=== PATIENT | female | born 1930 | race Caucasian/White ===

== ENCOUNTER 2018-07-31 11:42 | Inpatient (IN) ==
--- NOTE | 2018-07-31 12:55 | Progress Note ---
Internal Medicine - PN: Subj *Date: 07/31/18 *Time: 12:52 Interval history: See H&P from A. See also ER record of 4 PM. Admitted with altered mental status, likely CVA. Current on adult immunizations. No out of country travel recently. Exam Vital signs and Labs for Last 24 Hours: Temp Pulse Resp BP Pulse Ox 98.4 F 64 18 193/87 H 97 07/31/18 11:46 07/31/18 11:46 07/31/18 11:46 07/31/18 11:46 07/31/18 11:46 I & O for Last 24 hours: Intake & Output 07/29/18 07/30/18 07/31/18 08/01/18 11:59 11:59 11:59 11:59 Weight 168 lb 2 oz Assessment and Plan (1) Altered mental state Current visit: Yes Status: Acute Category: Medical Code(s): R41.82 - Altered mental status, unspecified (2) Hypothyroidism (acquired) Current visit: Yes Status: Acute Category: Medical Code(s): E03.9 - Hypothyroidism, unspecified (3) Sinusitis Current visit: Yes Status: Acute Category: Medical Code(s): J32.9 - Chronic sinusitis, unspecified - Assessment and plan all Dx Assessment and Plan for all problems:: see orders.
[2018-07-31 13:04] LABS: Albumin Level 3.8 gm/dL (3.4-5.0); Anion Gap 15.6 mEq/L (5-15); Bilirubin,Total 0.7 mg/dL (0.2-1.0); Calcium 9.7 mg/dL (8.5-10.1); Globulin 3.8 gm/dl (1.3-3.2); Potassium 3.6 mmoL/L (3.5-5.1); Total Protein,Serum 7.6 gm/dL (6.4-8.2)
[2018-07-31 13:34] LABS: Basophils % 0.3 % (0.1-2.0); Eosinophils % 0.6 % (0.1-12.0); Hematocrit 37.9 % (37.0-47.0); Hemoglobin 12.4 g/dL (12.2-16.2); Lymphocytes # 1.6 K/mm3 (0.7-4.5); Lymphocytes % 20.5 % (10-50); Mean Corpuscular HGB Conc 32.7 g/dL (31.8-35.4); Mean Corpuscular Hemoglobin 28.5 pg (27.0-31.2); Mean Corpuscular Volume 87.3 fl (81-99); Mean Platelet Volume 7.8 fl (7.4-10.4); Monocytes # 0.3 K/mm3 (0.1-1.0); Monocytes % 4.2 % (1.7-9.3); Neutrophils # 5.6 K/mm3 (1.8-7.8); Neutrophils % 74.5 % (37.0-80.0); Platelet Count 246 K/mm3 (142-424); Red Blood Count 4.33 M/mm3 (4.20-5.40); Red Cell Distribution Width 14.9 % (11.5-17.5); White Blood Count 7.6 K/mm3 (4.8-10.8)
--- NOTE | 2018-07-31 14:16 | Pharmacy Consult Notes ---
[facility] Pharmacy VTE Monitoring - Patient Demographics Admission date: 07/31/18 Report Date: 07/31/18 Time: 14:16 Allergies/Adverse Reactions: Patient Allergies No Known Allergies Allergy (Verified 07/30/18 17:11) Height: 1.57 m Weight: 76.26 kg Patient Problems: Current Active Problems Altered mental state (Acute) Hypothyroidism (acquired) (Acute) Sinusitis (Acute) - VTE Risk Labs: VTE Related Lab Results Hgb 12.4 g/dL (12.2-16.2) 07/31/18 12:20 Hct 37.9 % (37.0-47.0) 07/31/18 12:20 Plt Count 246 K/mm3 (142-424) 07/31/18 12:20 BUN 15 mg/dL (7-18) D 07/31/18 12:20 Creatinine 0.88 mg/dL (0.55-1.02) 07/31/18 12:20 Estimated Creat Clear 47 mL/min (50-200) 07/31/18 12:20 VTE Score: 2 - Prophylaxis VTE Prophylaxis Ordered?: Yes Types of VTE Prophylaxis: TEDS Knee High Location of Applied Device: Bilateral Lower Extremeties - VTE Diagnosis Confirmed Treatment or plan recommended: Continue Current Treatment
[2018-07-31 20:51] LABS: Microscopic, Urine URINE MICROSCOPIC (MICROSCOPIC)
[2018-07-31 20:57] LABS: Appearance,Urine CLEAR (Clear); Bilirubin,Urine Negative (Negative); Blood, Urine TRACE-L (Negative); Color,Urine YELLOW (Yellow); Glucose,Urine (UA) Negative (Negative); Ketones,Urine Negative (Negative); Leukocyte Esterase,Urine Negative (Negative); Protein,Urine Negative (Negative); Specific Gravity, Urine <= 1.005 (1.005-1.030); Urobilinogen,Urine 0.2 EU/dl (0.2)
[2018-07-31 21:43] LABS: Bacteria,Urine Trace /lpf; Squamous Epithelial Cell,Urine Occasional #/hpf (0-5); WBC,Urine Occasional #/hpf (0-3)
--- NOTE | 2018-08-01 08:45 | Progress Note ---
<Stacey Saunders - Last Filed: 08/01/18 08:41> Internal Medicine - PN: Subj *Date: 08/01/18 *Time: 08:41 Interval history: Ms. Kamaar is an 88-year-old female who presented to the office of [facility] yesterday and saw Dr. wilkins. She was having slurred speech and memory loss. Her blood pressure was elevated and she seemed very confused and was not making sense when she was talking. She had imaging done the previous day in the ER showing severe sinus disease but nothing acute. She had a slight right facial droop but no other obvious focal deficits in the office. She was babbling and confused. She was admitted and was thought to have had a CVA with altered mental status. This a.m. she is still slightly confused and her speech is still slurred. She continues to have no focal deficits although she does have a hard time following commands. Exam Vital signs and Labs for Last 24 Hours: Temp Pulse Resp BP Pulse Ox 98.0 F 61 18 188/71 H 94 L 08/01/18 04:00 08/01/18 04:00 08/01/18 04:00 08/01/18 04:00 08/01/18 04:00 Laboratory Results - last 24 hr 07/31/18 12:20: Sodium 136, Potassium 3.6, Chloride 101, Carbon Dioxide 23, Anion Gap 15.6 H, BUN 15 D, Creatinine 0.88, Estimated Creat Clear 47, Estimated GFR 61, Est GFR ( Amer) 73, Glucose 106, Calcium 9.7, Total Bilirubin 0.7, AST 25 D, ALT 25, Alkaline Phosphatase 79, Total Protein 7.6, Albumin 3.8, Globulin 3.8 H, Albumin/Globulin Ratio 1.0 L 07/31/18 12:20: WBC 7.6, RBC 4.33, Hgb 12.4, Hct 37.9, MCV 87.3, MCH 28.5, MCHC 32.7, RDW 14.9, Plt Count 246, MPV 7.8, Neut % (Auto) 74.5, Lymph % (Auto) 20.5, [place] % (Auto) 4.2, Eos % (Auto) 0.6, Baso % (Auto) 0.3, Neut # (Auto) 5.6, Lymph # (Auto) 1.6, [place] # (Auto) 0.3, Eos # (Auto) 0.0, Baso # (Auto) 0.0 07/31/18 12:20: TSH 0.57 D 07/31/18 12:20: Vitamin B12 345 07/31/18 20:43: Urine Color Yellow, Urine Appearance Clear, Urine pH 6.0, Ur Specific [place] <= 1.005, Urine Protein Negative, Urine Glucose (UA) Negative, Urine Ketones Negative, Urine Blood Trace-l, Urine Nitrate Negative, Urine Bilirubin Negative, Urine Urobilinogen 0.2, Ur Leukocyte Esterase Negative, Urine WBC Occasional, Ur Squamous Epith Cells Occasional, Urine Bacteria Trace I & O for Last 24 hours: Intake & Output 07/29/18 07/30/18 07/31/18 08/01/18 11:59 11:59 11:59 11:59 Intake Total 870 / 870 Output Total 600 / 600 Balance 270 / 270 Weight 168 lb 2 oz 165 lb 5 oz - Constitutional no acute distress (confused) - *Routine Respiratory Exam Present: rales (left base). Absent: wheezes - *Routine Cardiovascular Exam Present: RRR - *Routine Abdominal Exam Present: soft, normoactive bowel sounds. Absent: tenderness - *Routine Extremities Exam Absent: cyanosis, clubbing, edema - *Routine Skin Exam Present: warm. Absent: rash - *Routine Neurological Exam Present: alert (slurred speech), altered mental status. Absent: motor deficit Assessment and Plan (1) CVA (cerebral vascular accident) Current visit: No Status: Acute Qualifiers: CVA mechanism: unspecified Qualified Code(s): I63.9 - Cerebral infarction, unspecified Category: Medical Code(s): I63.9 - Cerebral infarction, unspecified (2) Altered mental state Current visit: Yes Status: Acute Category: Medical Code(s): R41.82 - Altered mental status, unspecified (3) Sinusitis Current visit: Yes Status: Acute Category: Medical Code(s): J32.9 - Chronic sinusitis, unspecified (4) Hypothyroidism (acquired) Current visit: Yes Status: Chronic Category: Medical Code(s): E03.9 - Hypothyroidism, unspecified (5) Hypertension Current visit: Yes Status: Chronic Category: Medical Code(s): I10 - Essential (primary) hypertension - Assessment and plan all Dx Assessment and Plan for all problems:: Patient will have a CT of the head with contrast today as well as an echo and carotid Dopplers to rule out a CVA. She will be started on some amlodipine for hypertension. A speech therapy evaluation as well as PT and OT will be ordered. <Philipp Arora - Last Filed: 08/01/18 18:28> Internal Medicine - PN: Subj *Date: 08/01/18 *Time: 18:24 Interval history: Her symptoms started on the afternoon of 07/30/2018 when she presented to the emergency room with symptoms of acute stroke. Dr. Camejo contacted the stroke team at and she was accepted for transfer but at that point the patient refused treatment despite the urging of the family and Dr. Camejo. She insisted on going home and the family acquiesced to her wishes. After going home her symptoms progressed and by yesterday she was more confused and having more speech difficulty. At that point she was brought to the office of [facility] and Dr. Wilkins subsequently arranged for admission. Exam Vital signs and Labs for Last 24 Hours: Temp Pulse Resp BP Pulse Ox 98.4 F 50 L 17 151/59 H 97 08/01/18 15:11 08/01/18 15:11 08/01/18 15:11 08/01/18 15:11 08/01/18 15:11 Laboratory Results - last 24 hr 07/31/18 12:20: Vitamin B12 345 07/31/18 20:43: Urine Color Yellow, Urine Appearance Clear, Urine pH 6.0, Ur Specific [place] <= 1.005, Urine Protein Negative, Urine Glucose (UA) Negative, Urine Ketones Negative, Urine Blood Trace-l, Urine Nitrate Negative, Urine Bilirubin Negative, Urine Urobilinogen 0.2, Ur Leukocyte Esterase Negative, Urine WBC Occasional, Ur Squamous Epith Cells Occasional, Urine Bacteria Trace I & O for Last 24 hours: Intake & Output 07/30/18 07/31/18 08/01/18 08/02/18 11:59 11:59 11:59 11:59 Intake Total 1110 / 1110 720 / 720 Output Total 600 / 600 Balance 510 / 510 720 / 720 Weight 168 lb 2 oz 165 lb 5 oz Assessment and Plan (1) CVA (cerebral vascular accident) Current visit: No Status: Acute Qualifiers: CVA mechanism: unspecified Qualified Code(s): I63.9 - Cerebral infarction, unspecified Category: Medical Code(s): I63.9 - Cerebral infarction, unspecified (2) Altered mental state Current visit: Yes Status: Acute Category: Medical Code(s): R41.82 - Altered mental status, unspecified (3) Sinusitis Current visit: Yes Status: Acute Category: Medical Code(s): J32.9 - Chronic sinusitis, unspecified (4) Hypothyroidism (acquired) Current visit: Yes Status: Chronic Category: Medical Code(s): E03.9 - Hypothyroidism, unspecified (5) Hypertension Current visit: Yes Status: Chronic Category: Medical Code(s): I10 - Esse ntial (primary) hypertension - Assessment and plan all Dx Assessment and Plan for all problems:: She is seen and examined. She clinically has symptoms of stroke manifested by confusion and expressive aphasia. As noted, we will plan to repeat her CT with contrast today along with further workup including carotid Dopplers and echocardiogram.
--- NOTE | 2018-08-01 09:41 | Carotid Imaging Report ---
"Cerebrovascular Exam Indications: 433.10 Occlusion/stenosis of carotid artery without cerebral infarction. right facial droop. IMPRESSIONS 1. The bilateral vertebral arteries are patent with normal antegrade flow. 2. Study suggests 20-49% stenosis involving the right internal carotid artery and the left internal carotid artery. No change from the study of 27-Feb-2017. History: Memory loss and aphasia. Stroke. Risk factors: Hypertension. Carotid duplex study. Complete study and Doppler flow study including spectral analysis, color and townsend scale imaging. Location: Bedside. Patient status: Inpatient. Tables: Arterial flow: + +--------+--------+ |Location |V sys |V ed | + +--------+--------+ |Right CCA - proximal|125cm/s |16.5cm/s| + +--------+--------+ |Right CCA - distal |80.3cm/s|14.7cm/s| + +--------+--------+ |Right ECA |85.2cm/s|--------| + +--------+--------+ |Right ICA - proximal|115cm/s |21.6cm/s| + +--------+--------+ |Right ICA - mid |92.2cm/s|23cm/s | + +--------+--------+ |Right ICA - distal |94.3cm/s|29.3cm/s| + +--------+--------+ |Right vertebral |53.8cm/s|--------| + +--------+--------+ |Left CCA - proximal |119cm/s |19.3cm/s| + +--------+--------+ |Left CCA - distal |88.6cm/s|16.3cm/s| + +--------+--------+ |Left ECA |83.6cm/s|--------| + +--------+--------+ |Left ICA - proximal |76.1cm/s|16.3cm/s| + +--------+--------+ |Left ICA - mid |82.3cm/s|22cm/s | + +--------+--------+ |Left ICA - distal |167cm/s |22cm/s | + +--------+--------+ |Left vertebral |57.2cm/s|--------| + +--------+--------+ Velocity ratios: + + + + + + | |Right, V sys|Right, V ed|Left, V sys|Left, V ed| + + + + + + |Max ICA/dist CCA|1.43 |1.99 |1.88 |1.35 | + + + + + + (Report amended ) Electronically signed by: Christos Hyman [id number]"
--- NOTE | 2018-08-02 08:10 | Progress Note ---
<Stacey Saunders - Last Filed: 08/02/18 08:08> Internal Medicine - PN: Subj *Date: 08/02/18 *Time: 08:08 Interval history: Patient is much more coherent today. She states she slept until around 4:00 and has been up since that time. She has been up and around the room and is eating well. She denies any pain today. Exam Vital signs and Labs for Last 24 Hours: Temp Pulse Resp BP Pulse Ox 99.0 F 58 L 15 165/65 H 92 L 08/02/18 04:00 08/02/18 04:00 08/02/18 04:00 08/02/18 04:00 08/02/18 04:00 Laboratory Results - last 24 hr 07/31/18 12:20: Vitamin B12 345 I & O for Last 24 hours: Intake & Output 07/30/18 07/31/18 08/01/18 08/02/18 11:59 11:59 11:59 11:59 Intake Total 1110 / 1110 720 / 720 Output Total 600 / 600 Balance 510 / 510 720 / 720 Weight 168 lb 2 oz 165 lb 5 oz 164 lb 4 oz Radiology Reports for the Last 24 Hours: Carotid duplex 1. The bilateral vertebral arteries are patent with normal antegrade flow. 2. Study suggests 20-49% stenosis involving the right internal carotid artery and the left internal carotid artery. No change from the study of -Feb-2017. Head CT Low-density changes now present within the anterior and in the posterior aspect of the left temporal lobe consistent with areas of infarction with some mild gyriform enhancement of the posterior temporal region. No hemorrhage apparent. - Constitutional no acute distress - *Routine Respiratory Exam Present: CTA bilaterally - *Routine Cardiovascular Exam Present: RRR - *Routine Abdominal Exam Present: soft, normoactive bowel sounds. Absent: tenderness - *Routine Extremities Exam Absent: cyanosis, clubbing, edema - *Routine Skin Exam Present: warm. Absent: rash - *Routine Neurological Exam Present: alert, oriented X3 Assessment and Plan (1) CVA (cerebral vascular accident) Current visit: No Status: Acute Qualifiers: CVA mechanism: unspecified Qualified Code(s): I63.9 - Cerebral infarction, unspecified Category: Medical Code(s): I63.9 - Cerebral infarction, unspecified (2) Altered mental state Current visit: Yes Status: Acute Category: Medical Code(s): R41.82 - Altered mental status, unspecified (3) Sinusitis Current visit: Yes Status: Acute Category: Medical Code(s): J32.9 - Chronic sinusitis, unspecified (4) Hypothyroidism (acquired) Current visit: Yes Status: Chronic Category: Medical Code(s): E03.9 - Hypothyroidism, unspecified (5) Hypertension Current visit: Yes Status: Chronic Category: Medical Code(s): I10 - Essential (primary) hypertension - Assessment and plan all Dx Assessment and Plan for all problems:: Patient's mental status is improving. Will continue PT and OT. Will discuss further care with Dr. Arora. <Philipp Arora - Last Filed: 08/02/18 08:58> Internal Medicine - PN: Subj *Date: 08/02/18 *Time: 08:55 Exam Vital signs and Labs for Last 24 Hours: Temp Pulse Resp BP Pulse Ox 97.5 F L 60 20 171/71 H 95 08/02/18 08:00 08/02/18 08:00 08/02/18 08:00 08/02/18 08:00 08/02/18 08:00 I & O for Last 24 hours: Intake & Output 07/30/18 07/31/18 08/01/18 08/02/18 11:59 11:59 11:59 11:59 Intake Total 1110 / 1110 1080 / 1080 Output Total 600 / 600 Balance 510 / 510 1080 / 1080 Weight 168 lb 2 oz 165 lb 5 oz 164 lb 4 oz Assessment and Plan (1) CVA (cerebral vascular accident) Current visit: No Status: Acute Qualifiers: CVA mechanism: unspecified Qualified Code(s): I63.9 - Cerebral infarction, unspecified Category: Medical Code(s): I63.9 - Cerebral infarction, unspecified (2) Altered mental state Current visit: Yes Status: Acute Category: Medical Code(s): R41.82 - Altered mental status, unspecified (3) Sinusitis Current visit: Yes Status: Acute Category: Medical Code(s): J32.9 - Chronic sinusitis, unspecified (4) Hypothyroidism (acquired) Current visit: Yes Status: Chronic Category: Medical Code(s): E03.9 - Hypothyroidism, unspecified (5) Hypertension Current visit: Yes Status: Chronic Category: Medical Code(s): I10 - Essential (primary) hypertension - Assessment and plan all Dx Assessment and Plan for all problems:: Patient seen and examined. Seems to have rested fairly well last night and is more calm this morning. She can not name place or date. SHe can relate events of past 3 days and does not seem to comprhehend she has had a stroke. She could benefit from acute inpatient rehab and will discuss benjamin to [facility] with family today.
--- NOTE | 2018-08-05 14:11 | Discharge Summary ---
General - General Admission date:: 07/31/18 Discharge date: 08/02/18 HPI HPI: Ms. Kamara is an 88-year-old female who presented to the office of [facility] and saw Dr. Wilkins. She was having slurred speech and memory loss. Her blood pressure was elevated and she seemed very confused and was not making sense when she was talking. She had imaging done the previous day in the ER showing severe sinus disease but nothing acute. She had a slight right facial droop but no other obvious focal deficits in the office. She was babbling and confused. She was admitted and was thought to have had a CVA with altered mental status. Hospital Course Hospital Course: The patient was admitted and a CT of the head with contrast as well as an echo and carotid Dopplers were ordered to rule out a CVA. She was started on some amlodipine for hypertension and a speech therapy evaluation as well as PT and OT were ordered. Of note, her symptoms did start on the afternoon of 07/30/18 when she presented to the emergency room with symptoms of acute stroke. Dr. Camejo contacted the stroke team at and she was accepted for transfer but at that point the patient refused treatment despite the urging of the family and Dr. Camejo. She insisted on going home and her symptoms progressed. She remained confused and had expressive aphasia for a few days. She was also very agitated. Her CT with contrast did confirm a stroke in the left temporal lobe. Speech therapy saw the patient and recommended acute inpatient rehab. Care management contacted [facility] and they accepted the patient for transfer, but the patient refused treatment and insisted on going home. She did not have insight into the significance of her stroke, showing poor judgment and refusing treatment. She did become more coherent and was not as agitated. She began sleeping better and was able to get up and around in the room without difficulty. It was felt she would benefit from inpatient rehabilitation, however the patient continued to insist that she go home. Her family did have 24-hour assistance at home and was agreeable to take the patient home. She was discharged with home health and will follow-up with Dr. Arora in the office. Objective Vital signs: Temp Pulse Resp BP Pulse Ox 97.5 F L 60 20 171/71 H 95 08/02/18 08:00 08/02/18 08:00 08/02/18 08:00 08/02/18 08:00 08/02/18 08:48 Narrative: - Constitutional no acute distress - *Routine Respiratory Exam Present: CTA bilaterally - *Routine Cardiovascular Exam Present: RRR - *Routine Abdominal Exam Present: soft, normoactive bowel sounds. Absent: tenderness - *Routine Extremities Exam Absent: cyanosis, clubbing, edema - *Routine Skin Exam Present: warm. Absent: rash - *Routine Neurological Exam Present: alert, oriented X3 DS: Diagnosis - Discharge Diagnosis (1) CVA (cerebral vascular accident) Status: Acute (2) Altered mental state Status: Acute (3) Sinusitis Status: Acute (4) Hypothyroidism (acquired) Status: Chronic (5) Hypertension Status: Chronic Discharge Plan - Patient Discharge Instructions ACTIVITY: Continue current activity DIET: continue same diet Patient Instructions: DI for Stroke-Ischemic, DI for Hypothyroidism, DI for Altered Mental Status - Follow up Plan Follow up with: Philipp Arora MD [Primary Care Provider] - 1 week Disposition: Home Health Service Home Medications: Home Medications Medication Instructions Recorded Confirmed Type sertraline 50 mg tablet 50 mg PO DAILY 06/21/17 07/31/18 History Ciclopirox 1 applicatio TOPICAL BID 07/31/18 07/31/18 History Dorzolamide HCl/Pf [Dorzolamide 2% 1 drop OP TID 07/31/18 07/31/18 History Eye Drop] Latanoprost/Pf [Latanoprost 0.005% 1 drop OU HS 07/31/18 07/31/18 History Eye Drop] Levothyroxine Sodium 100 mcg PO DAILY 07/31/18 07/31/18 History [Levothyroxine 50mcg (0.05mg) Tab] Metoprolol Succinate [Toprol Xl] 100 mg PO DAILY 07/31/18 07/31/18 History Timolol [Betimol] 1 drop OU BID 07/31/18 07/31/18 History Amlodipine Besylate [Norvasc 5mg 5 mg PO DAILY #30 tab 08/02/18 Rx tablet] Clopidogrel Bisulfate [Plavix 75mg 75 mg PO DAILY #30 tab 08/02/18 Rx Tab] Dorzolamide HCl [Trusopt 2% opth 0 ml OP TID ml 08/02/18 Rx soln 10mL] Dorzolamide HCl [Trusopt 2% opth 1 ml OP TID ml 08/02/18 Rx soln 10mL] Latanoprost [Xalatan 0.005% Ophth 1 ml OP HS bottle 08/02/18 Rx Soln 2.5mL] Timolol Maleate [Timoptic 0.5% 1 ml OP BID bottle 08/02/18 Rx opth soln 5mL] Prescriptions/Medication Reconciliation: New Dorzolamide HCl [Trusopt 2% opth soln 10mL] 0 ml OP TID ml Dorzolamide HCl [Trusopt 2% opth soln 10mL] 1 ml OP TID ml Latanoprost [Xalatan 0.005% Ophth Soln 2.5mL] 1 ml OP HS bottle Timolol Maleate [Timoptic 0.5% opth soln 5mL] 1 ml OP BID bottle Amlodipine Besylate [Norvasc 5mg tablet] 5 mg PO DAILY #30 tab Clopidogrel Bisulfate [Plavix 75mg Tab] 75 mg PO DAILY #30 tab Continued sertraline 50 mg tablet 50 mg PO DAILY Levothyroxine Sodium [Levothyroxine 50mcg (0.05mg) Tab] 100 mcg PO DAILY Metoprolol Succinate [Toprol Xl] 100 mg PO DAILY Timolol [Betimol] 1 drop OU BID Latanoprost/Pf [Latanoprost 0.005% Eye Drop] 1 drop OU HS Dorzolamide HCl/Pf [Dorzolamide 2% Eye Drop] 1 drop OP TID Ciclopirox 1 applicatio TOPICAL BID
== END 2018-08-02 16:23 | disposition home health service (06) | DRG 66 ==
LOC: 2ND → OBSVTOIN 11:43
PROVIDERS: ADMIT Family Medicine; ATTEND Family Medicine
CPT/HCPCS: Q9967

== ENCOUNTER 2019-01-22 17:17 | Observation (INO) ==
--- NOTE | 2019-01-22 18:01 | Emergency Department Note ---
ED Disposition Clinical Impression: Community acquired pneumonia Qualifiers: Laterality: right Lung location: lower lobe of lung Qualified Code(s): J18.1 - Lobar pneumonia, unspecified organism Congestive heart failure Qualifiers: Heart failure type: diastolic Heart failure chronicity: acute on chronic Qualified Code(s): I50.33 - Acute on chronic diastolic (congestive) heart failure Disposition: Admitted as Observation Condition on Discharge: Fair Instructions: Pneumonia-Adult, Heart Failure Additional Instructions: I discussed this patient with Dr. Wilkins who is covering for Dr. He and he recommends admitting her to an observation bed and giving her a dose of Lasix tonight we will start her on Levaquin and vancomycin as well Referrals: Minor He MD [Primary Care Provider] - Time of Disposition: 20:42 - Critical Care Critical Care Time: No Attestation: On 01/22/19, the high probability of a clinically significant, sudden or life threatening deterioration of the following system(s) required my full and direct attention, intervention and personal management. The time I documented below is in addition to time spent performing reported procedures but includes the following listed in this critical care notation. Medical Decision Making - Medical Records Medical records reviewed: Yes: I reviewed the patient's medical records. - Cesar Inquiry Pt receiving controlled substance: No Cesar was queried for this patient: No Vital Signs: 01/22/19 17:20 Pulse Rate [Right Radial] 91 H Respiratory Rate 20 Blood Pressure [Right Arm] 122/80 Blood Pressure Mean [Right Arm] 94 Blood Pressure Source [Right Arm] Automatic Cuff Blood Pressure Position [Right Arm] Sitting 02 Sat by Pulse Oximetry 95 Oxygen Delivery Method Room Air - Lab Data Lab results reviewed: Yes: I reviewed the patient's lab results. Lab Results 01/22/19 19:38: WBC 9.2, RBC 4.58, Hgb 12.2, Hct 40.2, MCV 87.6, MCH 26.7 L, MCHC 30.5 L, RDW 15.3, Plt Count 354, MPV 8.1, Neut % (Auto) 84.9 H, Lymph % (Auto) 10.3, [place] % (Auto) 4.0, Eos % (Auto) 0.4, Baso % (Auto) 0.3, Neut # (Auto) 7.8, Lymph # (Auto) 1.0, [place] # (Auto) 0.4, Eos # (Auto) 0.0, Baso # (Auto) 0.0 01/22/19 19:38: Sodium 128 L, Potassium 4.0, Chloride 92 L, Carbon Dioxide 25, Anion Gap 15.0, BUN 19 H, Creatinine 0.99, Estimated Creat Clear 45, Estimated GFR 53 L, Est GFR ( Amer) 64, Glucose 93, Calcium 9.2, Total Bilirubin 0.6, AST 25, ALT 23, Alkaline Phosphatase 98, C-Reactive Protein 14.1 H, Total Protein 7.6, Albumin 3.5, Globulin 4.1 H, Albumin/Globulin Ratio 0.9 L 01/22/19 19:38: ESR 62 H Result diagrams: 01/22/19 19:38 01/22/19 19:38 Orders (Tests/Meds): ORDERS Category Date Time Status Rapid Influenza A&B Antigens Stat Lab 01/22/19 18:01 Ordered Strep Scrn Group A (Rapid) Stat Lab 01/22/19 18:01 Ordered Urinalysis and Microscopic Stat Lab 01/22/19 18:02 Ordered Blood Culture Stat Micro 01/22/19 19:38 Received Arterial Blood Gas Stat RT 01/22/19 18:01 Ordered - Radiology Data #1 Image(s): Chest Image Reviewed: Yes I reviewed the patient's radiology results, Yes I reviewed the patient's radiology image, Yes I discussed the image results w/the radiologist, Yes I have reviewed radiologist's interpretation, Yes I reviewed the patient's radiology image w/the ED provider Preliminary Findings: Abnormal Patient has bilateral pleural effusions on chest x-ray and also a right lower lobe infiltrate Resp/SOB HPI - General Chief Complaint: Shortness of Breath/Dyspnea Stated Complaint: SOB Time Seen by Provider: 01/22/19 17:50 Mode of Arrival: Wheelchair Limitations: No Limitations Description of Symptoms (Recalled from ER Triage Doc. by RN): PT'S GRANDAUGHTER STATES THAT PT HAS BEEN "SICK" FOR THE PAST FEW WEEKS FROM A WOUND ON HER LEG. GRANDDAUGHTER STATES THAT SHE HAS BECOME SHORT OF BREATH TODAY. PT STATES SHE ONLY GETS SHORT OF BREATH WHEN SHE GETS "EXCITED". GRANDDAUGHTER SPOKE WITH PT'S PCP WHO INSTRUCTED THEM TO COME TO THE ER. - History of Present Illness Patient is an 88-year-old white female brought to the emergency room by her granddaughter who states she is been sick for a few weeks due to an infected wound on her left leg that is been treated with 3 different types of antibiotics. The current antibiotic is Bactrim DS and she has 2 more days left on the but now she is becoming a little bit more short of breath and the grandda henry is concerned there may be something worse going on she denies any chest pain but does have some shortness of breath MD Complaint: shortness of breath Onset (ago): day(s) Context: recent illness - Related Data Home Medications Medication Instructions Recorded Confirmed sertraline 50 mg tablet 50 mg PO DAILY 06/21/17 07/31/18 Ciclopirox 1 applicatio TOPICAL BID 07/31/18 07/31/18 Dorzolamide HCl/Pf [Dorzolamide 2% 1 drop OP TID 07/31/18 07/31/18 Eye Drop] Latanoprost/Pf [Latanoprost 0.005% 1 drop OU HS 07/31/18 07/31/18 Eye Drop] Levothyroxine Sodium 100 mcg PO DAILY 07/31/18 07/31/18 [Levothyroxine 50mcg (0.05mg) Tab] Metoprolol Succinate [Toprol Xl] 100 mg PO DAILY 07/31/18 07/31/18 Timolol [Betimol] 1 drop OU BID 07/31/18 07/31/18 Previous Rx's Medication Instructions Recorded Amlodipine Besylate [Norvasc 5mg 5 mg PO DAILY #30 tab 08/02/18 tablet] Clopidogrel Bisulfate [Plavix 75mg 75 mg PO DAILY #30 tab 08/02/18 Tab] Dorzolamide HCl [Trusopt 2% opth 0 ml OP TID ml 08/02/18 soln 10mL] Dorzolamide HCl [Trusopt 2% opth 1 ml OP TID ml 08/02/18 soln 10mL] Latanoprost [Xalatan 0.005% Ophth 1 ml OP HS bottle 08/02/18 Soln 2.5mL] Timolol Maleate [Timoptic 0.5% 1 ml OP BID bottle 08/02/18 opth soln 5mL] Allergies Allergy/AdvReac Type Severity Reaction Status Date / Time No Known Allergies Allergy Verified 07/30/18 17:11 [facility] History - Hepatitis A Screen Drug use history?: No High risk sexual behaviors?: No History of sexually transmitted infection?: No Currently employed?: No Childcare worker?: No Do you have indoor plumbing?: Yes Do you have electricity?: Yes Attestation statement:: This patient has been screened for Hepatitis A risk factors. I have reviewed the patient's past medical history: Yes Medical History: Reports:: Hyperlipidemia, Hypertension Denies:: Asthma, Chronic Obstructive Pulmonary Disease (COPD), Diabetes Mellitus Type 1, Diabetes Mellitus Type 2, Gastroesophageal Reflux Disease(GERD) Other Medical History: Reports: Arthritis, Glaucoma, Hypothyroidism Other Surgeries: Yes: Cholecystectomy Amputation: No Fractures: Yes Comment: cholecystectomy, - Social History Smoking Status: Never smoker Alcohol Intake: never Alcohol Intake Frequency:: other Occupational Status: other Housing: house Family Hx:: Cancer, Diabetes ROS Obtained: Yes All systems reviewed & no additional complaints - Constitutional Constitutional: Reports system reviewed and no additional complaints, except as docu, Reports as per HPI - Respiratory Respiratory: Yes system reviewed and no additional complaints, except as docu, Yes as per HPI, Yes dyspnea on exertion - Integumentary/Breasts Skin/Breast: Reports system reviewed and no additional complaints, except as docu, Reports as per HPI, Reports other (Cellulitis left lower extremity) - Neurologic Neurologic: Reports system reviewed and no additional complaints, except as docu, Reports as per HPI Physical Exam - General General appearance: alert, in no apparent distress - Head Head exam: atraumatic - Eye Eye exam: Present: normal appearance - ENT ENT exam: Present: normal exam - Neck Neck exam: Present: normal inspection - Chest Chest inspection: Present: normal inspection - Respiratory Respiratory exam: Present: normal lung sounds bilaterally - Cardiovascular Cardiovascular exam: Present: regular rate - Abdominal Exam Abdominal exam: Present: soft - Extremities Exam Extremities exam: Present: other (Cellulitis left lower extremity) - Neurological Exam Neurological exam: Present: alert, oriented X3 - Psychiatric Psychiatric exam: Present: normal affect
[2019-01-22 19:59] LABS: Basophils % 0.3 % (0.1-2.0); Eosinophils % 0.4 % (0.1-12.0); Hematocrit 40.2 % (37.0-47.0); Hemoglobin 12.2 g/dL (12.2-16.2); Lymphocytes % 10.3 % (10-50); Mean Corpuscular HGB Conc 30.5 g/dL (31.8-35.4); Mean Corpuscular Volume 87.6 fl (81-99); Mean Platelet Volume 8.1 fl (7.4-10.4); Monocytes # 0.4 K/mm3 (0.1-1.0); Neutrophils # 7.8 K/mm3 (1.8-7.8); Neutrophils % 84.9 % (37.0-80.0); Platelet Count 354 K/mm3 (142-424); Red Blood Count 4.58 M/mm3 (4.20-5.40); Red Cell Distribution Width 15.3 % (11.5-17.5); White Blood Count 9.2 K/mm3 (4.8-10.8)
[2019-01-22 20:10] LABS: Albumin Level 3.5 gm/dL (3.4-5.0); Albumin/Globulin Ratio 0.9 (1.1-1.8); Bilirubin,Total 0.6 mg/dL (0.2-1.0); Calcium 9.2 mg/dL (8.5-10.1); Globulin 4.1 gm/dl (1.3-3.2); Total Protein,Serum 7.6 gm/dL (6.4-8.2)
[2019-01-22 20:19] LABS: C-Reactive Protein 14.1 mg/dL (0.0-0.9)
[2019-01-22 21:25] LABS: ABG Base Excess -2.5 mmol/L (-2.4-2.3); ABG HCO3 21.2 mmhg (22.0-26.0); ABG Oxygen Saturation 94 % (90-100); ABG PCO2 29.8 mmhg (35.0-45.0); ABG PH 7.47 mmol/L (7.35-7.45); ABG PO2 67.8 mmhg (80-100); ABG TCO2 22.1 mmhg (23-27)
[2019-01-22 21:27] LABS: Allen's Test Acceptable; Oxygen room air %
[2019-01-23 00:34] LABS: Microscopic, Urine URINE MICROSCOPIC (MICROSCOPIC)
[2019-01-23 00:40] LABS: Appearance,Urine CLEAR (Clear); Bilirubin,Urine Negative (Negative); Blood, Urine Negative (Negative); Color,Urine YELLOW (Yellow); Glucose,Urine (UA) Negative (Negative); Ketones,Urine Negative (Negative); Leukocyte Esterase,Urine TRACE (Negative); Protein,Urine Negative (Negative); Urobilinogen,Urine 0.2 EU/dl (0.2)
[2019-01-23 01:19] LABS: Bacteria,Urine 1+ /lpf; Mucus,Urine 1+ /lpf
[2019-01-23 06:15] LABS: Basophils % 0.3 % (0.1-2.0); Eosinophils # 0.1 K/mm3 (0.0-0.4); Eosinophils % 1.1 % (0.1-12.0); Hematocrit 33.5 % (37.0-47.0); Lymphocytes # 0.9 K/mm3 (0.7-4.5); Lymphocytes % 13.1 % (10-50); Mean Corpuscular HGB Conc 30.3 g/dL (31.8-35.4); Mean Corpuscular Volume 87.8 fl (81-99); Mean Platelet Volume 7.8 fl (7.4-10.4); Monocytes # 0.4 K/mm3 (0.1-1.0); Monocytes % 5.3 % (1.7-9.3); Neutrophils # 5.8 K/mm3 (1.8-7.8); Neutrophils % 80.2 % (37.0-80.0); Platelet Count 289 K/mm3 (142-424); Red Blood Count 3.82 M/mm3 (4.20-5.40); Red Cell Distribution Width 15.2 % (11.5-17.5); White Blood Count 7.2 K/mm3 (4.8-10.8)
[2019-01-23 06:19] LABS: INR 1.12 (0.9-1.1); Prothrombin Time 11.6 seconds (9.4-11.8)
[2019-01-23 06:24] LABS: Albumin Level 2.3 gm/dL (3.4-5.0); Albumin/Globulin Ratio 0.6 (1.1-1.8); Anion Gap 11.7 mEq/L (5-15); Bilirubin,Total 0.4 mg/dL (0.2-1.0); Globulin 3.6 gm/dl (1.3-3.2); Total Protein,Serum 5.9 gm/dL (6.4-8.2)
[2019-01-23 06:29] LABS: Hemoglobin 10.1 g/dL (12.2-16.2)
--- NOTE | 2019-01-23 08:17 | Pharmacy Consult Notes ---
[facility] Pharmacy VTE Monitoring - Patient Demographics Admission date: 01/23/19 Report Date: 01/23/19 Time: 08:17 Allergies/Adverse Reactions: Patient Allergies No Known Allergies Allergy (Verified 07/30/18 17:11) Height: 1.6 m Weight: 73.085 kg Patient Problems: Current Active Problems Community acquired pneumonia (Acute) Congestive heart failure (Acute) - VTE Risk Labs: VTE Related Lab Results Hgb 10.1 g/dL (12.2-16.2) L D 01/23/19 05:58 Hct 33.5 % (37.0-47.0) L 01/23/19 05:58 Plt Count 289 K/mm3 (142-424) 01/23/19 05:58 PT 11.6 seconds (9.4-11.8) 01/23/19 05:58 INR 1.12 (0.9-1.1) H 01/23/19 05:58 BUN 18 mg/dL (7-18) 01/23/19 05:58 Creatinine 0.98 mg/dL (0.55-1.02) 01/23/19 05:58 Estimated Creat Clear 45 mL/min (50-200) 01/23/19 05:58 Was VTE Risk Assessment Performed: Yes VTE Score: 6 VTE Risk Level: Moderate Risk Clinical Trial Participant: No - Prophylaxis VTE Prophylaxis Ordered?: Yes Types of VTE Prophylaxis: TEDS Knee High
--- NOTE | 2019-01-23 08:50 | Pharmacy Consult Notes ---
- Pharmacy Consult Date: 01/23/19 Time: 08:49 Referring provider: DR. BARTON Reason for Consult:: VANCOMYCIN DOSING Allergies and ADEs:: Allergies Allergy/AdvReac Type Severity Reaction Status Date / Time No Known Allergies Allergy Verified 07/30/18 17:11 Home Medications:: Home Medications Medication Instructions Recorded Confirmed Type sertraline 50 mg tablet 50 mg PO DAILY 06/21/17 07/31/18 History Ciclopirox 1 applicatio TOPICAL BID 07/31/18 07/31/18 History Dorzolamide HCl/Pf [Dorzolamide 2% 1 drop OP TID 07/31/18 07/31/18 History Eye Drop] Latanoprost/Pf [Latanoprost 0.005% 1 drop OU HS 07/31/18 07/31/18 History Eye Drop] Levothyroxine Sodium 100 mcg PO DAILY 07/31/18 07/31/18 History [Levothyroxine 50mcg (0.05mg) Tab] Metoprolol Succinate [Toprol Xl] 100 mg PO DAILY 07/31/18 07/31/18 History Timolol [Betimol] 1 drop OU BID 07/31/18 07/31/18 History Amlodipine Besylate [Norvasc 5mg 5 mg PO DAILY #30 tab 08/02/18 Rx tablet] Clopidogrel Bisulfate [Plavix 75mg 75 mg PO DAILY #30 tab 08/02/18 Rx Tab] Dorzolamide HCl [Trusopt 2% opth 0 ml OP TID ml 08/02/18 Rx soln 10mL] Dorzolamide HCl [Trusopt 2% opth 1 ml OP TID ml 08/02/18 Rx soln 10mL] Latanoprost [Xalatan 0.005% Ophth 1 ml OP HS bottle 08/02/18 Rx Soln 2.5mL] Timolol Maleate [Timoptic 0.5% 1 ml OP BID bottle 08/02/18 Rx opth soln 5mL] Furosemide [Furosemide 40MG tAB] 40 mg PO DAILY 01/22/19 01/22/19 History Potassium Chloride [Klor-con 20 20 meq PO DAILY 01/22/19 01/22/19 History mEq tablet] Height: 1.6 m Weight: 73.085 kg Laboratory Results:: Laboratory Results - last 24 hr 01/22/19 18:01: Specimen Source Right radial, O2 % room air, ABG pH 7.47 H, ABG pCO2 29.8 L, ABG pO2 67.8 L, ABG HCO3 21.2 L, ABG Total CO2 22.1 L, ABG O2 Saturation 94, ABG Base Excess -2.5 L, Christos Test Acceptable 01/22/19 19:38: WBC 9.2, RBC 4.58, Hgb 12.2, Hct 40.2, MCV 87.6, MCH 26.7 L, MCHC 30.5 L, RDW 15.3, Plt Count 354, MPV 8.1, Neut % (Auto) 84.9 H, Lymph % (Auto) 10.3, [place] % (Auto) 4.0, Eos % (Auto) 0.4, Baso % (Auto) 0.3, Neut # (Auto) 7.8, Lymph # (Auto) 1.0, [place] # (Auto) 0.4, Eos # (Auto) 0.0, Baso # (Auto) 0.0 01/22/19 19:38: Sodium 128 L, Potassium 4.0, Chloride 92 L, Carbon Dioxide 25, Anion Gap 15.0, BUN 19 H, Creatinine 0.99, Estimated Creat Clear 45, Estimated GFR 53 L, Est GFR ( Amer) 64, Glucose 93, Calcium 9.2, Total Bilirubin 0.6, AST 25, ALT 23, Alkaline Phosphatase 98, C-Reactive Protein 14.1 H, Total Protein 7.6, Albumin 3.5, Globulin 4.1 H, Albumin/Globulin Ratio 0.9 L 01/22/19 19:38: ESR 62 H 01/23/19 00:20: Influenza Type A Ag Negative, Influenza Type B Ag Negative 01/23/19 00:20: Group A Strep Rapid Negative 01/23/19 00:20: Urine Color Yellow, Urine Appearance Clear, Urine pH 6.0, Ur Specific [place] 1.010, Urine Protein Negative, Urine Glucose (UA) Negative, Urine Ketones Negative, Urine Blood Negative, Urine Nitrate Negative, Urine Bilirubin Negative, Urine Urobilinogen 0.2, Ur Leukocyte Esterase Trace, Urine WBC 3-5, Ur Squamous Epith Cells 5-10, Urine Bacteria 1+, Urine Mucus 1+ 01/23/19 05:58: WBC 7.2, RBC 3.82 L, Hgb 10.1 L D, Hct 33.5 L, MCV 87.8, MCH 26.6 L, MCHC 30.3 L, RDW 15.2, Plt Count 289, MPV 7.8, Neut % (Auto) 80.2 H, Lymph % (Auto) 13.1, [place] % (Auto) 5.3, Eos % (Auto) 1.1, Baso % (Auto) 0.3, Neut # (Auto) 5.8, Lymph # (Auto) 0.9, [place] # (Auto) 0.4, Eos # (Auto) 0.1, Baso # (Auto) 0.0 01/23/19 05:58: PT 11.6, INR 1.12 H 01/23/19 05:58: Sodium 130 L, Potassium 3.7, Chloride 95 L, Carbon Dioxide 27, Anion Gap 11.7, BUN 18, Creatinine 0.98, Estimated Creat Clear 45, Estimated GFR 54 L, Est GFR ( Amer) 65, Glucose 78, Calcium 8.0 L D, Total Bilirubin 0.4, AST 18 D, ALT 15 D, Alkaline Phosphatase 72, Total Protein 5.9 L, Albumin 2.3 L D, Globulin 3.6 H, Albumin/Globulin Ratio 0.6 L Medical History: Reports:: Hyperlipidemia, Hypertension Denies:: Asthma, Cancer, Chronic Obstructive Pulmonary Disease (COPD), Diabetes Mellitus Type 1, Diabetes Mellitus Type 2, Gastroesophageal Reflux Disease(GERD), MRSA Assessment and Plan - Assessment and plan all Dx Assessment and Plan for all problems:: BASED ON PATIENT FACTORS, RECOMMEND VANCOMYCIN 1 GM IV Q24H. PHARMACY WILL FOLLOW DAILY AND ADJUST APPROPRIATE.
--- NOTE | 2019-01-23 08:56 | History & Physical Report ---
*Admission Date: 01/23/19 *Chief complaint: shortness of breath *History of present illness: Ms. Kamara is an 88-year-old female who has been seen frequently at [facility] for the past month with lower extremity edema and a left lower leg cellulitis. She was started on 40 mg of Lasix initially and was referred to the lymphedema clinic for wrapping and dressing of her legs as it is difficult for her and her family to do at home. She was also started on Keflex for the left lower leg cellulitis. Her swelling did improve and the erythema improved as well. Blood work was ordered after a week of Lasix and her sodium and potassium were both low. She was started on oral potassium and her Lasix dose was decreased back to 20 mg daily. She took a total of 14 days of Keflex and the left lower extremity cellulitis started to worsen again. Her keflex was stopped and she was switched to Bactrim. She had repeat blood work last week and her potassium and sodium had improved but her BNP was elevated. Her family was informed on Sunday to increase her Lasix dose back to 40 mg and to double her potassium dose to 40meq daily. The patient states she is unsure what dose of medication she has been taking. She thinks she has only been taking 20 mg of Lasix and 20 mEq of potassium. Yesterday her sitter called the office of [facility] stating she was having difficulty breathing and her swelling had increased. It was felt she was likely in CHF and was told to present to the emergency room. In the ER, she was found to have CHF as well as a pneumonia. She was admitted and started on IV antibiotics for her pneumonia and left lower leg cellulitis as well as Lasix for CHF. Of note, she did recently have an echo which showed moderate pulmonary hypertension and an EF of 55%. [facility] History I have reviewed the patient's past medical history: Yes Medical History: Reports:: Cerebrovascular Accident, Hyperlipidemia, Hypertension Denies:: Asthma, Cancer, Chronic Obstructive Pulmonary Disease (COPD), Diabetes Mellitus Type 1, Diabetes Mellitus Type 2, Gastroesophageal Reflux Disease(GERD), MRSA *Have you ever received a pneumonia vaccine?: No *Have you received a flu vaccine this season?: No Other Medical History: Reports: Arthritis, Glaucoma, Hypothyroidism Laterality Cases: Left: Cataract, Right: Total Knee Replacement, Bilateral: Arthroscopy Knee Other Surgeries: Yes: Cholecystectomy, Other (Jonny placed in RLE, 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) Amputation: No Fractures: Yes - *Social History Educational Level: Completed High School Smoking Status: Never smoker Alcohol Intake: never Alcohol Intake Frequency:: other *Occupational Status:: retired Housing: house Household Members: spouse *Travel in the last 8 weeks: None Family Hx:: Cancer, Diabetes Review of Systems - Constitutional Reports fever(s), Reports weakness, Denies chills - Eyes Denies blurry vision, Denies double vision - ENT Denies nasal congestion, Denies sore throat - *Cardiovascular Reports shortness of breath, Reports leg swelling, Denies chest pain - *Respiratory Reports shortness of breath, Denies cough - *Gastrointestinal Denies abdominal pain, Denies loose stools, Denies nausea, Denies vomiting - *Genitourinary Denies difficulty urinating, Denies painful urination - *Musculoskeletal Denies joint pain - *Neurologic Reports headache(s), Denies dizziness, Denies weakness Meds Home Medications Medication Instructions Recorded Confirmed Type sertraline 50 mg tablet 50 mg PO DAILY 06/21/17 07/31/18 History Ciclopirox 1 applicatio TOPICAL BID 07/31/18 07/31/18 History Dorzolamide HCl/Pf [Dorzolamide 2% 1 drop OP TID 07/31/18 07/31/18 History Eye Drop] Latanoprost/Pf [Latanoprost 0.005% 1 drop OU HS 07/31/18 07/31/18 History Eye Drop] Levothyroxine Sodium 100 mcg PO DAILY 07/31/18 07/31/18 History [Levothyroxine 50mcg (0.05mg) Tab] Metoprolol Succinate [Toprol Xl] 100 mg PO DAILY 07/31/18 07/31/18 History Timolol [Betimol] 1 drop OU BID 07/31/18 07/31/18 History Amlodipine Besylate [Norvasc 5mg 5 mg PO DAILY #30 tab 08/02/18 Rx tablet] Clopidogrel Bisulfate [Plavix 75mg 75 mg PO DAILY #30 tab 08/02/18 Rx Tab] Dorzolamide HCl [Trusopt 2% opth 0 ml OP TID ml 08/02/18 Rx soln 10mL] Dorzolamide HCl [Trusopt 2% opth 1 ml OP TID ml 08/02/18 Rx soln 10mL] Latanoprost [Xalatan 0.005% Ophth 1 ml OP HS bottle 08/02/18 Rx Soln 2.5mL] Timolol Maleate [Timoptic 0.5% 1 ml OP BID bottle 08/02/18 Rx opth soln 5mL] Furosemide [Furosemide 40MG tAB] 40 mg PO DAILY 01/22/19 01/22/19 History Potassium Chloride [Klor-con 20 20 meq PO DAILY 01/22/19 01/22/19 History mEq tablet] Allergies Allergy/AdvReac Type Severity Reaction Status Date / Time No Known Allergies Allergy Verified 07/30/18 17:11 Exam Vital signs and Labs for Last 24 Hours: Temp Pulse Resp BP Pulse Ox 97.8 F 69 17 128/81 95 01/23/19 04:00 01/23/19 04:00 01/23/19 04:00 01/23/19 04:00 01/23/19 04:00 Laboratory Results - last 24 hr 01/22/19 18:01: Specimen Source Right radial, O2 % room air, ABG pH 7.47 H, ABG pCO2 29.8 L, ABG pO2 67.8 L, ABG HCO3 21.2 L, ABG Total CO2 22.1 L, ABG O2 Saturation 94, ABG Base Excess -2.5 L, Christos Test Acceptable 01/22/19 19:38: WBC 9.2, RBC 4.58, Hgb 12.2, Hct 40.2, MCV 87.6, MCH 26.7 L, MCHC 30.5 L, RDW 15.3, Plt Count 354, MPV 8.1, Neut % (Auto) 84.9 H, Lymph % (Auto) 10.3, [place] % (Auto) 4.0, Eos % (Auto) 0.4, Baso % (Auto) 0.3, Neut # (Auto) 7.8, Lymph # (Auto) 1.0, [place] # (Auto) 0.4, Eos # (Auto) 0.0, Baso # (Auto) 0.0 01/22/19 19:38: Sodium 128 L, Potassium 4.0, Chloride 92 L, Carbon Dioxide 25, Anion Gap 15.0, BUN 19 H, Creatinine 0.99, Estimated Creat Clear 45, Estimated GFR 53 L, Est GFR ( Amer) 64, Glucose 93, Calcium 9.2, Total Bilirubin 0.6, AST 25, ALT 23, Alkaline Phosphatase 98, C-Reactive Protein 14.1 H, Total Protein 7.6, Albumin 3.5, Globulin 4.1 H, Albumin/Globulin Ratio 0.9 L 01/22/19 19:38: ESR 62 H 01/23/19 00:20: Influenza Type A Ag Negative, Influenza Type B Ag Negative 01/23/19 00:20: Group A Strep Rapid Negative 01/23/19 00:20: Urine Color Yellow, Urine Appearance Clear, Urine pH 6.0, Ur Specific [place] 1.010, Urine Protein Negative, Urine Glucose (UA) Negative, Urine Ketones Negative, Urine Blood Negative, Urine Nitrate Negative, Urine Bilirubin Negative, Urine Urobilinogen 0.2, Ur Leukocyte Esterase Trace, Urine WBC 3-5, Ur Squamous Epith Cells 5-10, Urine Bacteria 1+, Urine Mucus 1+ 01/23/19 05:58: WBC 7.2, RBC 3.82 L, Hgb 10.1 L D, Hct 33.5 L, MCV 87.8, MCH 26.6 L, MCHC 30.3 L, RDW 15.2, Plt Count 289, MPV 7.8, Neut % (Auto) 80.2 H, Lymph % (Auto) 13.1, [place] % (Auto) 5.3, Eos % (Auto) 1.1, Baso % (Auto) 0.3, Neut # (Auto) 5.8, Lymph # (Auto) 0.9, [place] # (Auto) 0.4, Eos # (Auto) 0.1, Baso # (Auto) 0.0 01/23/19 05:58: PT 11.6, INR 1.12 H 01/23/19 05:58: Sodium 130 L, Potassium 3.7, Chloride 95 L, Carbon Dioxide 27, Anion Gap 11.7, BUN 18, Creatinine 0.98, Estimated Creat Clear 45, Estimated GFR 54 L, Est GFR ( Amer) 65, Glucose 78, Calcium 8.0 L D, Total Bilirubin 0.4, AST 18 D, ALT 15 D, Alkaline Phosphatase 72, Total Protein 5.9 L, Albumin 2.3 L D, Globulin 3.6 H, Albumin/Globulin Ratio 0.6 L I & O for Last 24 hours: Intake & Output 01/20/19 01/21/19 01/22/19 01/23/19 11:59 11:59 11:59 11:59 Output Total 900 / 900 Balance -900 / -900 Weight 161 lb 2 oz - Constitutional no acute distress - *Routine HEENT Exam Head: Present: normocephalic Eye: Present: EOMI, PERRL ENT: Present: mucous membranes moist - *Routine Neck Exam Present: supple. Absent: lymphadenopathy - *Routine Respiratory Exam Present: decreased breath sounds, crackles (bibasilar) - *Routine Cardiovascular Exam Present: RRR (with frequent ectopics) - *Routine Abdominal Exam Present: soft, normoactive bowel sounds. Absent: tenderness - *Routine Extremities Exam Present: edema (1+ edema bilaterally, erythema of the left lower leg). Absent: cyanosis, clubbing - *Routine Skin Exam Present: erythema (left lower leg), warm. Absent: rash - *Routine Neurological Exam Present: alert, oriented X3 H&P: Result - Impressions Tib/Fib X-ray - Soft tissue swelling otherwise negative CXR 1. Improvement in CHF and patchy density in the right mid to lower lung zone. 2. Suspect right lower lobe collapse with small bilateral effusions. Assessment and Plan (1) Congestive heart failure Current visit: Yes Status: Acute Qualifiers: Heart failure type: diastolic Heart failure chronicity: acute on chronic Qualified Code(s): I50.33 - Acute on chronic diastolic (congestive) heart failure Category: Medical Code(s): I50.9 - Heart failure, unspecified (2) Left leg cellulitis Current visit: Yes Status: Acute Category: Medical Code(s): L03.116 - Cellulitis of left lower limb (3) Glaucoma Current visit: Yes Status: Chronic Category: Medical Code(s): H40.9 - Unspecified glaucoma (4) Hypothyroidism Current visit: Yes Status: Chronic Category: Medical Code(s): E03.9 - Hypothyroidism, unspecified (5) Hypertension Current visit: No Status: Chronic Category: Medical Code(s): I10 - Essential (primary) hypertension (6) Hypothyroidism (acquired) Current visit: No Status: Chronic Category: Medical Code(s): E03.9 - Hypothyroidism, unspecified - Assessment and plan all Dx Assessment and Plan for all problems:: Swelling has improved. Shortness of breath has improved. Left lower extremity is still erythematous. We will continue antibiotics. We will repeat a chest x- ray today to evaluate CHF.
--- NOTE | 2019-01-23 22:05 | Electrocardiograph Report ---
APPROVED REPORT Exam: Resting ECG HR:80 bpm ECG Measurements Heart Rate 80 AXES QRSd 78 QRS 46 QT 362 T-27 QTc 417 <Conclusion> Atrial fibrillation Nonspecific ST and T wave abnormality, probably digitalis effect Abnormal ECG Electronically signed by : Franc Wilhelm, 01/23/2019 22:05:19
--- NOTE | 2019-01-24 08:25 | Progress Note ---
Internal Medicine - PN: Subj *Date: 01/24/19 *Time: 08:22 Interval history: Patient is feeling better this morning. She denies any cough or shortness of breath. She states her swelling has improved. She slept well and is up eating breakfast in the chair this morning. Exam Vital signs and Labs for Last 24 Hours: Temp Pulse Resp BP Pulse Ox 98.7 F 74 16 115/72 94 L 01/24/19 04:00 01/24/19 04:00 01/24/19 04:00 01/24/19 04:00 01/24/19 04:00 I & O for Last 24 hours: Intake & Output 01/21/19 01/22/19 01/23/19 01/24/19 11:59 11:59 11:59 11:59 Intake Total 360 / 360 840 / 840 Output Total 900 / 900 Balance -540 / -540 840 / 840 Weight 161 lb 2 oz 163 lb 3 oz Radiology Reports for the Last 24 Hours: CXR Cardiomegaly with improvement in CHF and right lower lobe pneumonia with persistent right lower lobe volume loss and bilateral pleural effusions - Constitutional no acute distress - *Routine Respiratory Exam Present: rales (faint bibasilar). Absent: wheezes - *Routine Cardiovascular Exam Present: RRR (with frequent ectopics) - *Routine Abdominal Exam Present: soft, normoactive bowel sounds. Absent: tenderness - *Routine Extremities Exam Present: edema (improving). Absent: cyanosis, clubbing - *Routine Skin Exam Present: warm. Absent: rash Comments: legs are wrapped - *Routine Neurological Exam Present: alert, oriented X3 Assessment and Plan (1) Congestive heart failure Current visit: Yes Status: Acute Qualifiers: Heart failure type: diastolic Heart failure chronicity: acute on chronic Qualified Code(s): I50.33 - Acute on chronic diastolic (congestive) heart failure Category: Medical Code(s): I50.9 - Heart failure, unspecified (2) Left leg cellulitis Current visit: Yes Status: Acute Category: Medical Code(s): L03.116 - Ce llulitis of left lower limb (3) Glaucoma Current visit: Yes Status: Chronic Category: Medical Code(s): H40.9 - Unspecified glaucoma (4) Hypothyroidism Current visit: Yes Status: Chronic Category: Medical Code(s): E03.9 - Hypothyroidism, unspecified (5) Hypertension Current visit: No Status: Chronic Category: Medical Code(s): I10 - Essential (primary) hypertension (6) Hypothyroidism (acquired) Current visit: No Status: Chronic Category: Medical Code(s): E03.9 - Hypothyroidism, unspecified - Assessment and plan all Dx Assessment and Plan for all problems:: Patient's repeat chest x-ray does show improvement in her CHF. It also shows a right-sided pneumonia. Will repeat labs this morning. Swelling has improved. Upon disposition, the patient is going to need home health as well as med packaging to make sure she is taking her medications correctly. A family member is supposed to be present this morning to speak with Dr. Wilkins.
[2019-01-24 08:43] LABS: Basophils % 0.3 % (0.1-2.0); Eosinophils # 0.2 K/mm3 (0.0-0.4); Eosinophils % 2.2 % (0.1-12.0); Hematocrit 36.7 % (37.0-47.0); Hemoglobin 11.3 g/dL (12.2-16.2); Lymphocytes # 0.8 K/mm3 (0.7-4.5); Lymphocytes % 10.4 % (10-50); Mean Corpuscular HGB Conc 30.8 g/dL (31.8-35.4); Mean Corpuscular Volume 86.6 fl (81-99); Mean Platelet Volume 7.7 fl (7.4-10.4); Monocytes # 0.4 K/mm3 (0.1-1.0); Monocytes % 4.7 % (1.7-9.3); Neutrophils # 6.6 K/mm3 (1.8-7.8); Neutrophils % 82.4 % (37.0-80.0); Platelet Count 379 K/mm3 (142-424); Red Blood Count 4.24 M/mm3 (4.20-5.40); Red Cell Distribution Width 15.2 % (11.5-17.5)
[2019-01-24 08:55] LABS: Albumin Level 2.7 gm/dL (3.4-5.0); Albumin/Globulin Ratio 0.7 (1.1-1.8); Anion Gap 13.3 mEq/L (5-15); Bilirubin,Total 0.5 mg/dL (0.2-1.0); Calcium 8.3 mg/dL (8.5-10.1); Globulin 3.8 gm/dl (1.3-3.2); Total Protein,Serum 6.5 gm/dL (6.4-8.2)
--- NOTE | 2019-01-27 13:56 | Discharge Summary ---
General - General Admission date:: 01/22/19 Discharge date: 01/24/19 HPI HPI: Ms. Kamara is an 88-year-old female who has been seen frequently at [facility] for the past month with lower extremity edema and a left lower leg cellulitis. She was started on 40 mg of Lasix initially and was referred to the lymphedema clinic for wrapping and dressing of her legs as it is difficult for her and her family to do at home. She was also started on Keflex for the left lower leg cellulitis. Her swelling did improve and the erythema improved as well. Blood work was ordered after a week of Lasix and her sodium and potassium were both low. She was started on oral potassium and her Lasix dose was decreased back to 20 mg daily. She took a total of 14 days of Keflex and the left lower extremity cellulitis started to worsen again. Her keflex was stopped and she was switched to Bactrim. She had repeat blood work last week and her potassium and sodium had improved but her BNP was elevated. Her family was informed on Sunday to increase her Lasix dose back to 40 mg and to double her potassium dose to 40meq daily. The patient states she is unsure what dose of medication she has been taking. She thinks she has only been taking 20 mg of L asix and 20 mEq of potassium. Yesterday her sitter called the office of [facility] stating she was having difficulty breathing and her swelling had increased. It was felt she was likely in CHF and was told to present to the emergency room. In the ER, she was found to have CHF as well as a pneumonia. She was admitted and started on IV antibiotics for her pneumonia and left lower leg cellulitis as well as Lasix for CHF. Of note, she did recently have an echo which showed moderate pulmonary hypertension and an EF of 55%. Hospital Course Hospital Course: The patient had a tib-fib x-ray showing soft tissue swelling. She had an initial chest x-ray showing CHF with bilateral effusions and a patchy infiltrate in the right lower lung. She had a repeat chest x-ray after receiving diuretics and there was some improvement in the CHF. The patient had great improvement in her shortness of breath after receiving the diuretics. The cellulitis in her leg did improve with IV abx. She had another chest x-ray on 01/23/2019 showing continued improvement in her CHF and right lower lobe pneumonia with persistent bilateral effusions. She was continued on diuretics and her swelling improved. The patient was insistent on going home. Labs on the day of discharge showed a slightly low sodium and potassium after receiving diuretics. Her renal function was slightly elevated as well. She was discharged home on oral cefdinir and her Lasix and potassium doses were both increased. She will be discharged home with home health and will follow-up with Dr. Arora on 01/28/2019, at which time she will need repeat labs. Objective Vital signs: Temp Pulse Resp BP Pulse Ox 98.2 F 84 17 125/59 L 95 01/24/19 12:00 01/24/19 12:00 01/24/19 12:00 01/24/19 12:00 01/24/19 12:00 Narrative: - Constitutional no acute distress - *Routine HEENT Exam Head: Present: normocephalic Eye: Present: EOMI, PERRL ENT: Present: mucous membranes moist - *Routine Neck Exam Present: supple. Absent: lymphadenopathy - *Routine Respiratory Exam Present: decreased breath sounds, crackles (bibasilar) - *Routine Cardiovascular Exam Present: RRR (with frequent ectopics) - *Routine Abdominal Exam Present: soft, normoactive bowel sounds. Absent: tenderness - *Routine Extremities Exam Present: edema (1+ edema bilaterally, erythema of the left lower leg). Absent: cyanosis, clubbing - *Routine Skin Exam Present: erythema (left lower leg), warm. Absent: rash - *Routine Neurological Exam Present: alert, oriented X3 Results Labs on day of discharge: Preliminary micro results at discharge 01/22/19 19:38 Blood Culture - Preliminary Blood NO GROWTH AFTER 48 HOURS 01/22/19 19:38 Blood Culture - Preliminary Blood NO GROWTH AFTER 48 HOURS DS: Diagnosis - Discharge Diagnosis (1) Congestive heart failure Status: Acute (2) Left leg cellulitis Status: Acute (3) Glaucoma Status: Chronic (4) Hypothyroidism Status: Chronic (5) Hypertension Status: Chronic (6) Hypothyroidism (acquired) Status: Chronic Discharge Plan - Patient Discharge Instructions ACTIVITY: Continue current activity DIET: continue same diet Patient Instructions: Pneumonia-Adult, Pneumococcal Vaccine, DI for Pneumonia -- Adult - Follow up Plan Follow up with: Philipp Arora MD [Staff Physician] - 01/28/19 3:00 pm () Disposition: Home Health Service Home Medications: Home Medications Medication Instructions Recorded Confirmed Type sertraline 50 mg tablet 75 mg PO DAILY 06/21/17 01/23/19 History Dorzolamide HCl/Pf [Dorzolamide 2% 1 drop OP TID 07/31/18 01/23/19 History Eye Drop] Levothyroxine Sodium 100 mcg PO DAILY 07/31/18 01/23/19 History [Levothyroxine 50mcg (0.05mg) Tab] Metoprolol Succinate [Toprol Xl] 100 mg PO DAILY 07/31/18 01/23/19 History Amlodipine Besylate [Norvasc 5mg 5 mg PO DAILY 01/23/19 01/23/19 History tablet] Clopidogrel Bisulfate [Plavix 75mg 75 mg PO DAILY 01/23/19 01/23/19 History Tab] Cefdinir [Omnicef 300mg Capsule] 300 mg PO BID #20 cap 01/24/19 Rx Furosemide [Furosemide 20mg Tab] 20 mg PO BID #60 tab 01/24/19 Rx Potassium Chloride [Klor-con 20 20 meq PO BID #60 tab 01/24/19 Rx mEq tablet] Prescriptions/Medication Reconciliation: New Cefdinir [Omnicef 300mg Capsule] 300 mg PO BID #20 cap Continued sertraline 50 mg tablet 75 mg PO DAILY Levothyroxine Sodium [Levothyroxine 50mcg (0.05mg) Tab] 100 mcg PO DAILY Metoprolol Succinate [Toprol Xl] 100 mg PO DAILY Dorzolamide HCl/Pf [Dorzolamide 2% Eye Drop] 1 drop OP TID Amlodipine Besylate [Norvasc 5mg tablet] 5 mg PO DAILY Clopidogrel Bisulfate [Plavix 75mg Tab] 75 mg PO DAILY Changed Potassium Chloride [Klor-con 20 mEq tablet] 20 meq PO BID #60 tab Furosemide [Furosemide 20mg Tab] 20 mg PO BID #60 tab - Problem Reconciliation Problems Reviewed?: Yes
== END 2019-01-24 16:11 | disposition home health service (06) ==
LOC: 2ND 17:17 → ER 17:17 → 2ND 23:00
PROVIDERS: ADMIT Family Medicine; ATTEND Family Medicine
DX: E03.9 Hypothyroidism, unspecified; L03.116 Cellulitis of left lower limb; E78.5 Hyperlipidemia, unspecified; J18.1 Lobar pneumonia, unspecified organism; I50.33 Acute on chronic diastolic (congestive) heart failure; I11.0 Hypertensive heart disease with heart failure; H40.9 Unspecified glaucoma
CPT/HCPCS: 36415; 71010; 71020; 71045; 71046; 73590; 80053; 81001; 82803; 85025; 85610; 85651; 86140; 87040; 87275; 87276; 87430; 93005; 96365; 96375; 99284; G0378; J1956; J3370